=== PATIENT | male | born 1945 | race Caucasian/White ===

== ENCOUNTER 2018-10-08 12:06 | Observation (INO) ==
--- NOTE | 2018-10-08 15:39 | Emergency Department Note ---
Disposition Clinical Impression: Syncope and collapse, Syncope Disposition: Admitted As Inpatient Condition: Fair Referrals: Kelvin Mcmullen DO [Primary Care Provider] - Forms: ED Satisfaction Letter Time of Disposition: 17:50 General Adult HPI - General Chief complaint: ED Seizure Stated complaint: Possible seizure Time Seen by Provider: 10/08/18 14:17 Source: patient, family Limitations: no limitations - History of Present Illness HPI Narrative: Mr. Nicole is a 73-year-old male with past medical history of PA in 2008, hyperlipidemia, dementia who presented to the ED after a recent episode of witn essed jerking of whole-body. His is at bedside, reports this afternoon they were waiting at his chiropractor's office reading a magazine when all of the sudden his hands and whole body started shaking for about 1 minute. He dropped the magazine and prior to this even happening he felt "funny." He was not responsive to verbal stimuli during the event. After the event he was confused and reported he felt "funny." He has never had an event like this before. No recent changes in diet or physical activity. Prior to this event she had a normal breakfast this morning did not have any symptoms. During this event she did not have loss of bowel or bladder control denied biting his tongue or facial droopiness. Denies any current chest pain or chest pain at the onset of the symptoms. Denies fever, chills, nausea, emesis, bowel changes, bowel changes, abdominal pain, back pain. Pain Scale: 0 - Related Data Previous Rx's Medication Instructions Recorded HYDROcodone/Acet 5/325 mg [[place] 1 tab PO Q4H PRN #15 tab 07/26/16 5-325 mg] Allergies Allergy/AdvReac Type Severity Reaction Status Date / Time fenofibrate [From Tricor] AdvReac Muscle Pain Verified 10/08/18 12:35 Oghpvnn-Pmg-Cwa Reductase AdvReac Muscle Pain Verified 10/08/18 12:35 Inhibitor Constitutional: Denies: fever, chills, weakness Eyes: Denies: eye pain, eye discharge ENT ED: Denies: ear pain, throat pain, epistaxis, congestion, dysphagia Cardiovascular: Denies: chest pain, palpitations, dyspnea on exertion, orthopnea Respiratory: Denies: cough, dyspnea, wheezes Gastrointestinal: Denies: abdominal pain, nausea, vomiting, diarrhea Genitourinary: Denies: dysuria, frequency, hematuria Integumentary: Denies: rash, lesions Neurological: Denies: headache, weakness, numbness, confusion Past Medical History - Past Medical History Medical history: Reports: coronary artery disease, dementia, diabetes, myocar dial infarction Surgical history: Reports: angioplasty/stent, herniorrhaphy, orthopedic, other Psychiatric history: Reports: no psych history - Social History Smoking Status: Former smoker Smokeless Tobacco Status: No Alcohol use: Reports: none Drug use: Reports: none Physical Exam - General Limitations: no limitations General appearance: alert, in no apparent distress - Head Head exam: atraumatic, normocephalic - Eye Eye exam: Present: normal appearance, EOMI. Absent: scleral icterus, conjunctival injection - ENT ENT exam: normal exam, mucous membranes moist, mucous membranes dry - Neck Neck exam: Present: normal inspection, full ROM, trachea midline - Chest Chest inspection: Present: normal inspection, symmetric chest wall rise. Absent: tenderness - Respiratory Respiratory exam: Present: normal lung sounds bilaterally. Absent: respiratory distress, wheezes - Cardiovascular Cardiovascular exam: Present: regular rate, normal rhythm, +S1, +S2 - Abdominal Exam Abdominal exam: Present: soft, Non-Tender, normal bowel sounds. Absent: rigidity - Extremities Exam Extremities exam: Present: normal inspection, full ROM. Absent: tenderness, pedal edema - Neurological Exam Neurological exam: Present: alert, oriented X3, CN II-XII intact - Psychiatric Psychiatric exam: Present: normal affect, normal mood Course - Reevaluation(s) Reevaluation #1: CT had is within normal limits. EKG shows sinus bradycardia. He will be admitted to the hospital for further workup due to episode of syncope. Time: 16:48 Reevaluation #2: Updated admitting physician and patient will be admitted to inpatient for syncopal episode and further workup. Time: 17:47 Vital Signs Temperature 97.5 F L 10/08/18 12:29 Pulse Rate 60 10/08/18 12:29 Respiratory Rate 16 10/08/18 12:29 Blood Pressure 138/75 10/08/18 12:29 O2 Sat by Pulse Oximetry 97 10/08/18 12:29 Temperature 97.5 F L 10/08/18 12:29 Pulse Rate 55 10/08/18 16:26 Respiratory Rate 12 10/08/18 16:26 Blood Pressure 133/62 10/08/18 16:26 O2 Sat by Pulse Oximetry 100 10/08/18 16:26 Oxygen Delivery Oxygen Delivery Room Air Medical Decision Making - Lab Data Result diagrams: 10/08/18 15:37 10/08/18 15:37 Lab Results 10/08/18 10/08/18 10/08/18 Range/Units 15:37 15:37 15:37 WBC 7.6 (4.3-11.1) K/mcL RBC 4.16 L (4.19-5.50) M/mcL Hgb 13.0 (12.9-16.9) g/dL Hct 38.2 (37.5-50.1) % MCV 91.8 (83.0-100.0) fL MCH 31.3 (28.0-33.3) pg MCHC 34.0 (31.6-35.5) g/dL RDW 12.6 (11.5-14.5) % Plt Count 218 (140-400) K/mcL MPV 10.1 (9.4-12.4) fL Immature Gran % 0.3 (0-4) % Seg Neutrophils % 63.4 % Lymphocytes % 24.8 % Monocytes % 9.1 % Eosinophils % 1.7 % Basophils % 0.7 % Neutrophils # 4.8 (1.6-8.9) K/mcL Lymphocytes # 1.9 (0.6-4.6) K/mcL Monocytes # 0.7 (0.0-1.3) K/mcL Eosinophils # 0.1 (0.0-0.6) K/mcL Basophils # 0.1 (0.0-0.2) K/mcL D-Dimer (0-500) ng/mLFEU Sodium 135 L (136-145) mEq/L Potassium 4.4 (3.5-5.1) mEq/L Chloride 103 (98-107) mEq/L Carbon Dioxide 25 (23-29) mEq/L BUN 13 (8-23) mg/dL Creatinine 0.93 (0.70-1.30) mg/dL Est GFR ( Amer) > 60 (> 60) Est GFR (Non-Af Amer) > 60 (> 60) BUN/Creatinine Ratio 14 (6-26) Glucose 107 H (70-105) mg/dL Calculated Osmolality 281 (280-300) Lactic Acid 0.8 (0.5-2.2) mmol/L Calcium 9.3 (8.6-10.3) mg/dL Troponin I < 0.03 (< 0.04) ng/mL Urine Color (Yellow) Urine Clarity (Clear) Urine pH (5.0-8.0) pH Units Ur Specific [place] (1.010-1.025) Urine Protein (Neg-Trace) mg/dL Urine Glucose (UA) (Normal) mg/dL Urine Ketones (Negative) mg/dL Urine Blood (Negative) Urine Nitrite (Negative) Urine Bilirubin (Negative) Urine Urobilinogen (Normal) mg/dL Ur Leukocyte Esterase (Negative) Ur Culture Indicated? (NO) Urine Opiates Screen (Fpclco=900) ng/mL Ur Barbiturates Screen (Elfhzi=056) ng/mL Ur Phencyclidine Scrn (Cutoff=25) ng/mL Ur Amphetamines Screen ([place]=6214) ng/mL U Benzodiazepines Scrn (Dedthp=118) ng/mL Urine Cocaine Screen (Cutoff= 300) ng/mL U Marijuana (THC) Screen (Cutoff = 50) ng/mL Ur Drug Screen Interp 10/08/18 10/08/18 10/08/18 Range/Units 15:37 17:04 17:09 WBC (4.3-11.1) K/mcL RBC (4.19-5.50) M/mcL Hgb (12.9-16.9) g/dL Hct (37.5-50.1) % MCV (83.0-100.0) fL MCH (28.0-33.3) pg MCHC (31.6-35.5) g/dL RDW (11.5-14.5) % Plt Count (140-400) K/mcL MPV (9.4-12.4) fL Immature Gran % (0-4) % Seg Neutrophils % % Lymphocytes % % Monocytes % % Eosinophils % % Basophils % % Neutrophils # (1.6-8.9) K/mcL Lymphocytes # (0.6-4.6) K/mcL Monocytes # (0.0-1.3) K/mcL Eosinophils # (0.0-0.6) K/mcL Basophils # (0.0-0.2) K/mcL D-Dimer 466 (0-500) ng/mLFEU Sodium (136-145) mEq/L Potassium (3.5-5.1) mEq/L Chloride (98-107) mEq/L Carbon Dioxide (23-29) mEq/L BUN (8-23) mg/dL Creatinine (0.70-1.30) mg/dL Est GFR ( Amer) (> 60) Est GFR (Non-Af Amer) (> 60) BUN/Creatinine Ratio (6-26) Glucose (70-105) mg/dL Calculated Osmolality (280-300) Lactic Acid (0.5-2.2) mmol/L Calcium (8.6-10.3) mg/dL Troponin I (< 0.04) ng/mL Urine Color Yellow (Yellow) Urine Clarity Clear (Clear) Urine pH 7.0 (5.0-8.0) pH Units Ur Specific [place] < 1.005 L (1.010-1.025) Urine Protein Negative (Neg-Trace) mg/dL Urine Glucose (UA) Normal (Normal) mg/dL Urine Ketones Negative (Negative) mg/dL Urine Blood Negative (Negative) Urine Nitrite Negative (Negative) Urine Bilirubin Negative (Negative) Urine Urobilinogen Normal (Normal) mg/dL Ur Leukocyte Esterase Negative (Negative) Ur Culture Indicated? NO (NO) Urine Opiates Screen Negative (Nobvgt=651) ng/mL Ur Barbiturates Screen Negative (Tccewk=760) ng/mL Ur Phencyclidine Scrn Negative (Cutoff=25) ng/mL Ur Amphetamines Screen Negative (Ipcrjf=7731) ng/mL U Benzodiazepines Scrn Negative (Mpyogp=366) ng/mL Urine Cocaine Screen Negative (Cutoff= 300) ng/mL U Marijuana (THC) Screen Negative (Cutoff = 50) ng/mL Ur Drug Screen Interp See Below
[2018-10-08 15:54] LABS: Basophils # 0.1 K/mcL (0.0-0.2); Basophils % 0.7 %; Eosinophils # 0.1 K/mcL (0.0-0.6); Eosinophils % 1.7 %; Hematocrit 38.2 % (37.5-50.1); Immature Granulocytes % 0.3 % (0-4); Lymphocytes # 1.9 K/mcL (0.6-4.6); Lymphocytes % 24.8 %; Mean Corpuscular Hemoglobin 31.3 pg (28.0-33.3); Mean Corpuscular Volume 91.8 fL (83.0-100.0); Mean Platelet Volume 10.1 fL (9.4-12.4); Monocytes # 0.7 K/mcL (0.0-1.3); Monocytes % 9.1 %; Neutrophils # 4.8 K/mcL (1.6-8.9); Platelet Count 218 K/mcL (140-400); Red Blood Count 4.16 M/mcL (4.19-5.50); Red Cell Distribution Width 12.6 % (11.5-14.5); Segmented Neutrophils % 63.4 %; White Blood Count 7.6 K/mcL (4.3-11.1)
[2018-10-08 16:31] LABS: BUN/Creatinine Ratio 14 (6-26); Blood Urea Nitrogen 13 mg/dL (8-23); Calcium 9.3 mg/dL (8.6-10.3); Carbon Dioxide 25 mEq/L (23-29); Chloride 103 mEq/L (98-107); Glucose 107 mg/dL (70-105); Osmolality,Calculated 281 (280-300); Potassium 4.4 mEq/L (3.5-5.1); Sodium 135 mEq/L (136-145); Troponin I < 0.03 ng/mL (< 0.04); eGFR For African Americans > 60 (> 60); eGFR For Non-African Americans > 60 (> 60)
--- NOTE | 2018-10-08 16:45 | Emergency Department Note ---
Disposition Clinical Impression: Syncope and collapse Disposition: Admitted As Inpatient Condition: Fair Referrals: Kelvin Mcmullen DO [Primary Care Provider] - Forms: ED Satisfaction Letter Time of Disposition: 16:48 General Adult HPI - General Chief complaint: ED Seizure Stated complaint: Possible seizure Time Seen by Provider: 10/08/18 14:17 Source: patient, family Limitations: no limitations - History of Present Illness Pain Scale: 0 - Related Data Previous Rx's Medication Instructions Recorded HYDROcodone/Acet 5/325 mg [[place] 1 tab PO Q4H PRN #15 tab 07/26/16 5-325 mg] Allergies Allergy/AdvReac Type Severity Reaction Status Date / Time fenofibrate [From Tricor] AdvReac Muscle Pain Verified 10/08/18 12:35 Hvlsofb-Pri-Meq Reductase AdvReac Muscle Pain Verified 10/08/18 12:35 Inhibitor Constitutional: Denies: fever, chills, weakness Eyes: Denies: eye pain, eye discharge ENT ED: Denies: ear pain, throat pain, epistaxis, congestion, dysphagia Cardiovascular: Denies: chest pain, palpitations, dyspnea on exertion, orthopnea Respiratory: Denies: cough, dyspnea, wheezes Gastrointestinal: Denies: abdominal pain, nausea, vomiting, diarrhea Genitourinary: Denies: dysuria, frequency, hematuria Integumentary: Denies: rash, lesions Neurological: Denies: headache, weakness, numbness, confusion Past Medical History - Past Medical History Medical history: Reports: coronary artery disease, dementia, diabetes, myocardial infarction Surgical history: Reports: angioplasty/stent, herniorrhaphy, orthopedic, other Psychiatric history: Reports: no psych history - Social History Smoking Status: Former smoker Smokeless Tobacco Status: No Alcohol use: Reports: none Drug use: Reports: none Physical Exam - General Limitations: no limitations General appearance: alert, in no apparent distress Course Vital Signs Temperature 97.5 F L 10/08/18 12:29 Pulse Rate 60 10/08/18 12:29 Respiratory Rate 16 10/08/18 12:29 Blood Pressure 138/75 10/08/18 12:29 O2 Sat by Pulse Oximetry 97 10/08/18 12:29 Temperature 97.5 F L 10/08/18 12:29 Pulse Rate 55 10/08/18 16:26 Respiratory Rate 12 10/08/18 16:26 Blood Pressure 133/62 10/08/18 16:26 O2 Sat by Pulse Oximetry 100 10/08/18 16:26 Oxygen Delivery Oxygen Delivery Room Air Medical Decision Making - Lab Data Result diagrams: 10/08/18 15:37 10/08/18 15:37 Lab Results 10/08/18 10/08/18 10/08/18 Range/Units 15:37 15:37 15:37 WBC 7.6 (4.3-11.1) K/mcL RBC 4.16 L (4.19-5.50) M/mcL Hgb 13.0 (12.9-16.9) g/dL Hct 38.2 (37.5-50.1) % MCV 91.8 (83.0-100.0) fL MCH 31.3 (28.0-33.3) pg MCHC 34.0 (31.6-35.5) g/dL RDW 12.6 (11.5-14.5) % Plt Count 218 (140-400) K/mcL MPV 10.1 (9.4-12.4) fL Immature Gran % 0.3 (0-4) % Seg Neutrophils % 63.4 % Lymphocytes % 24.8 % Monocytes % 9.1 % Eosinophils % 1.7 % Basophils % 0.7 % Neutrophils # 4.8 (1.6-8.9) K/mcL Lymphocytes # 1.9 (0.6-4.6) K/mcL Monocytes # 0.7 (0.0-1.3) K/mcL Eosinophils # 0.1 (0.0-0.6) K/mcL Basophils # 0.1 (0.0-0.2) K/mcL D-Dimer (0-500) ng/mLFEU Sodium 135 L (136-145) mEq/L Potassium 4.4 (3.5-5.1) mEq/L Chloride 103 (98-107) mEq/L Carbon Dioxide 25 (23-29) mEq/L BUN 13 (8-23) mg/dL Creatinine 0.93 (0.70-1.30) mg/dL Est GFR ( Amer) > 60 (> 60) Est GFR (Non-Af Amer) > 60 (> 60) BUN/Creatinine Ratio 14 (6-26) Glucose 107 H (70-105) mg/dL Calculated Osmolality 281 (280-300) Lactic Acid 0.8 (0.5-2.2) mmol/L Calcium 9.3 (8.6-10.3) mg/dL Troponin I < 0.03 (< 0.04) ng/mL 10/08/18 Range/Units 15:37 WBC (4.3-11.1) K/mcL RBC (4.19-5.50) M/mcL Hgb (12.9-16.9) g/dL Hct (37.5-50.1) % MCV (83.0-100.0) fL MCH (28.0-33.3) pg MCHC (31.6-35.5) g/dL RDW (11.5-14.5) % Plt Count (140-400) K/mcL MPV (9.4-12.4) fL Immature Gran % (0-4) % Seg Neutrophils % % Lymphocytes % % Monocytes % % Eosinophils % % Basophils % % Neutrophils # (1.6-8.9) K/mcL Lymphocytes # (0.6-4.6) K/mcL Monocytes # (0.0-1.3) K/mcL Eosinophils # (0.0-0.6) K/mcL Basophils # (0.0-0.2) K/mcL D-Dimer 466 (0-500) ng/mLFEU Sodium (136-145) mEq/L Potassium (3.5-5.1) mEq/L Chloride (98-107) mEq/L Carbon Dioxide (23-29) mEq/L BUN (8-23) mg/dL Creatinine (0.70-1.30) mg/dL Est GFR ( Amer) (> 60) Est GFR (Non-Af Amer) (> 60) BUN/Creatinine Ratio (6-26) Glucose (70-105) mg/dL Calculated Osmolality (280-300) Lactic Acid (0.5-2.2) mmol/L Calcium (8.6-10.3) mg/dL Troponin I (< 0.04) ng/mL Attestation Statement - Attestation Attestation: I have seen this patient with the resident physician, I have personally evaluated this patient. I had reviewed the chart and document dictation by the resident physician and aM in agreement with the information documented by the resident physician. Please see documentation by the resident physician for complete chart including past medical history, family medical history, review of systems, current history and physical and laboratory and imaging studies. I was present for all procedures, provided direct supervision for all procedures, was present for the entirety of all procedures and provided direct guidance during the procedures. Please see documentation by the resident physician for any procedures performed. I have reviewed all interpretations of EKGs, and reviewed all EKGs performed on patient's as well. I have also reviewed reports of imaging as provided by radiology. Patient presents emergency Department with chief complaint of syncope versus seizure, after discussing what happened with the , I am convinced that this is most likely a syncopal event he was sitting next to his in a chair waiting at the chiropractor's office when he had sudden onset of loss of consciousness the reports that he was just sitting there she saw his book fall on his hand she looked over he had generalize shaking-like activity that lasted less than a minute he did not bite his tongue he did not lose continence of urine, slumped to the side and then woke up after about a minute, returned almost immediately to his mental baseline while he was unclear as to what happened there was no postictal type phase he did not lose continence of urine and did not bite his tongue he states that his head feels a little faulty but has no headache. He states that before this happened he maybe was feeling a little queasy but states that he had no chest pain no shortness of breath no palpitations no abdominal pain no pain into his back no tearing or ripping sensation no unilateral numbness or weakness. He states he was just here a few days ago for evaluation of chest pain states that every thing checked out okay he said a little bit of chest pain since that time but not any significant exer tional symptoms. He denies vision changes he denies speech difficulty he denies history of syncope or of seizures. On exam he is alert and oriented 3 cranial nerves are intact no pass point no pronator drift normal strength sensation and reflexes. Speech is clear. Posterior normal extraocular movements are intact. No obvious carotid bruits or JVD. Cardiovascular bradycardic, rate of 56 on the monitor, 12 6 systolic murmur no rubs or gallops lungs are clear the abdomen is soft and nontender. Patient was laid back, and palpation of his abdomen reveals no tenderness there is no palpable or pulsatile mass in the left upper abdomen no ecchymosis on the abdomen. No flank ecchymosis. Normal pulses in all 4 extremities. EKG as interpreted by myself as a sinus rhythm sinus bradycardia, no evidence of acute ST elevation or ST depression as interpreted by myself no evidence of Wellens syndrome or [place] pattern. Chest x-ray as interpreted by radiology showed no evidence of acute abnormality. Head CT is interpreted by radiology showed no acute findings. CBC is within acceptable limits. Cardiac enzymes CBC basic metabolic profile all within acceptable limits. Secondary to the patient having had experienced chest pain the other day, now with a syncopal event a d-dimer was ordered to rule out evidence of pulmonary embolism this is also negative Patient without evidence of widened mediastinum but chest x-ray no chest pain no pain he was back no abdominal pain no abdominal tenderness no palpable or pulsatile Mass. nothing to suggest acute aortic pathology. Secondary to syncope at a seated position in a 73-year-old male with risk factors for cardiac disease and cardiac dysrhythmia he will be admitted to the hospital for further evaluation and management
[2018-10-08 17:19] LABS: Bilirubin,Urine Negative (Negative); Blood,Urine Negative (Negative); Clarity,Urine Clear (Clear); Color,Urine Yellow (Yellow); Glucose,Urine (UA) Normal (Normal); Ketones,Urine Negative (Negative); Leukocyte Esterase,Urine Negative (Negative); Nitrite,Urine Negative (Negative); Protein,Urine Negative (Neg-Trace); Specific Gravity,Urine < 1.005 (1.010-1.025); Urobilinogen,Urine Normal (Normal)
[2018-10-08 17:40] LABS: Amphetamine Screen,Urine Negative ng/mL (Cutoff=1000); Barbiturate Screen,Urine Negative ng/mL (Cutoff=200); Benzodiazepines Screen,Urine Negative ng/mL (Cutoff=200); Cannabinoid Screen,Urine Negative ng/mL (Cutoff = 50); Cocaine Screen,Urine Negative ng/mL (Cutoff= 300); Opiate Screen,Urine Negative ng/mL (Cutoff=300); Phencyclidine Screen,Urine Negative ng/mL (Cutoff=25)
--- NOTE | 2018-10-08 18:20 | Internal Med History&Physical ---
Date of Encounter: 10/08/18 Time of Encounter: 18:00 Internal Medicine - H&P: HPI Chief complaint: LOC, seizure-like activity Admitted From: Home History of present illness: Mr. Nicole is a 73 year old male with history of CAD status post PCI, CVA, early dementia, diabetes on diet control, presented to the ED after an episode of loss of consciousness associated with seizure-like activities. Pt's states they were at a chiropractor's office around 1130am when he suddenly dropped his book, unresponsive, and had jerky movements of all 4 limbs for about 15 seconds. No tongue biting or loss of bowel/bladder function. Spontaneously resolved and when asked by his whether he was ok or not, he was able to answer her question appropriately. They then went for a walk and although he was a bit wobbly on his feet, did not have any significant gait disturbance. No focal weakness/numbness, slurring of speech, facial droop, diplopia, or dysphagia. No fever/chills, chest pain, shortness of breath, palpitation, orthopnea, PND, leg swelling. No recent sick contact. In the ED, he was afebrile and hemodynamically stable. Labwork was essentially unremarkable with negative troponin and d-dimer. EKG shows normal sinus rhythm with ventricular rate of 55. Urinalysis was negative and urine drug screen was also negative. CXR did not show any acute cardiopulmonary process and head CT did not show any acute incranial abnormality. Patient was admitted for further management. Past Med Surg Social Fam HX - Past Medical History Medical history: coronary artery disease, dementia, diabetes, myocardial infarction Additional medical history: see pcp records Psychiatric history: no psych history - Past Surgical History Surgical History: angioplasty/stent, herniorrhaphy, orthopedic, other Additional surgical history: back surgery, LEFT KNEE SURGERY . Cardiac stent 2007 - Social History Smoking Status: Former smoker Smokeless Tobacco Status: No Alcohol use: none Drug use: none Internal Medicine - H&P: Meds HYDROcodone/Acet 5/325 mg [[place] 5-325 mg] 1 tab PO Q4H PRN #15 tab 07/26/16 [Rx] Allergy/AdvReac Type Severity Reaction Status Date / Time fenofibrate [From Tricor] AdvReac Muscle Pain Verified 10/08/18 12:35 Mmfrcuo-Ylz-Kbl Reductase AdvReac Muscle Pain Verified 10/08/18 12:35 Inhibitor All Systems PM: A 10-system review of systems was performed and is negative for pertinent findings except as documented above in the HPI. - Constitutional Vitals: Temp Pulse Resp BP Pulse Ox 97.5 F L 55 12 133/62 100 10/08/18 12:29 10/08/18 16:26 10/08/18 16:26 10/08/18 16:26 10/08/18 16:26 Exam: General: Alert and oriented, not in acute distress. HEENT:EOMI, pupils equal, round and reactive. Cardiovascular:Normal S1 & S2, No JVD. Pulse regular. No murmur appreciated Lungs: clear to auscultation, no wheezes/rales Abdomen:Soft, non-tender, no rigidity. Extremities:No deformity or swelling Neurological:CN II-XII intact, power and sensation fully intact in all 4 limbs. No cerebellar signs, pronator drift -ve, Babinski downgoing bilaterally Skin:Normal color, no rash, no lesions. Pulses:Carotid and radial pulses normal +2. Rest of the physical exam is non contributory Internal Med - H&P Results - Labs CBC & Chem 7: 10/08/18 15:37 10/08/18 15:37 Labs: Short CBC 10/08/18 Range/Units 15:37 WBC 7.6 (4.3-11.1) K/mcL Hgb 13.0 (12.9-16.9) g/dL Hct 38.2 (37.5-50.1) % Plt Count 218 (140-400) K/mcL Neutrophils # 4.8 (1.6-8.9) K/mcL BMP 10/08/18 15:37 Sodium 135 L Potassium 4.4 Chloride 103 Carbon Dioxide 25 BUN 13 Creatinine 0.93 Glucose 107 H Calcium 9.3 Cardiac Enzymes 10/08/18 Range/Units 15:37 Troponin I < 0.03 (< 0.04) ng/mL Urine 10/08/18 Range/Units 17:09 Urine Color Yellow (Yellow) Urine Clarity Clear (Clear) Urine pH 7.0 (5.0-8.0) pH Units Ur Specific [place] < 1.005 L (1.010-1.025) Urine Protein Negative (Neg-Trace) mg/dL Urine Glucose (UA) Normal (Normal) mg/dL - Impressions ITS Impressions Chest X-Ray 10/08/18 14:33 IMPRESSION: Stable exam. No new acute cardiopulmonary findings. D/ / Gillian Subramanian MD / Gillian Subramanian MD Interpreting Provider: Gillian Subramanian MD Head CT 10/08/18 14:33 IMPRESSION: No acute intracranial abnormality. D/ / Loyd Ray / Loyd Ray Interpreting Provider: Loyd Ray - Assessment and Plan (1) Syncope and collapse Current Visit: Yes Status: Acute Assessment and plan: presented with sudden LOC associated with jerky movements of all 4 limbs, however it was not followed by post-ictal confusion syncope vs. partial seizure upon review of previous record, pt was worked up for "seizure" in 10/2017 as he had tremors of the UEs bilaterally. endorses that this episode was different however EEG inconclusive at that time, MRI however did demonstrate chronic cortical infarct within the right posterior parietal lobe with adjacent gliosis and encephalomalacia telemetry, trend troponin to rule out ACS echocardiogram EEG neurology consult in the AM (2) CAD (coronary artery disease) Current Visit: Yes Status: Chronic Assessment and plan: Resume home meds once reconciled Qualifiers: Coronary Disease-Associated Artery/Lesion type: [place] artery [place] vs. transplanted heart: [place] heart Associated angina: without angina Qualified Code(s): I25.10 - Atherosclerotic heart disease of [place] coronary artery without angina pectoris (3) Dementia Current Visit: Yes Status: Chronic Assessment and plan: resume aricept when reconciled Qualifiers: Dementia type: unspecified type Dementia behavioral disturbance: without behavioral disturbance Qualified Code(s): F03.90 - Unspecified dementia without behavioral disturbance (4) Diabetes Current Visit: Yes Status: Chronic Assessment and plan: A1c 6.6 in 06/2018 diet control at home Qualifiers: Diabetes mellitus type: type 2 Diabetes mellitus termite inspector insulin use: without detention use Diabetes mellitus complication status: without complication Qualified Code(s): E11.9 - Type 2 diabetes mellitus without complications (5) DVT prophylaxis Current Visit: Yes Status: Acute Assessment and plan: EPCD - Time Spent With Patient Total time spent is greater than 50% in coordination of care (as documented) at patient's floor/unit and/or counseling patient: 25 - 35 minutes
[2018-10-08] MEDS ORDERED: Naloxone 0.4 MG/ML INJ IVP PRN (18:24)
[2018-10-08] MEDS ORDERED: Ondansetron 4 MG/2 ML VIAL IVP PRN (18:24)
[2018-10-08] MEDS ORDERED: *HR* LORazepam 2 MG/ML VIAL IVP PRN (18:30)
[2018-10-09 07:40] LABS: Basophils # 0.1 K/mcL (0.0-0.2); Basophils % 0.8 %; Eosinophils # 0.2 K/mcL (0.0-0.6); Eosinophils % 2.8 %; Hematocrit 38.2 % (37.5-50.1); Hemoglobin 12.7 g/dL (12.9-16.9); Immature Granulocytes % 0.4 % (0-4); Lymphocytes # 1.8 K/mcL (0.6-4.6); Lymphocytes % 25.7 %; Mean Corpuscular HGB Conc 33.2 g/dL (31.6-35.5); Mean Corpuscular Hemoglobin 30.5 pg (28.0-33.3); Mean Corpuscular Volume 91.8 fL (83.0-100.0); Mean Platelet Volume 10.5 fL (9.4-12.4); Monocytes # 0.7 K/mcL (0.0-1.3); Monocytes % 10.2 %; Neutrophils # 4.2 K/mcL (1.6-8.9); Platelet Count 216 K/mcL (140-400); Red Blood Count 4.16 M/mcL (4.19-5.50); Red Cell Distribution Width 12.6 % (11.5-14.5); Segmented Neutrophils % 60.1 %; White Blood Count 7.1 K/mcL (4.3-11.1)
[2018-10-09 07:51] LABS: BUN/Creatinine Ratio 12 (6-26); Blood Urea Nitrogen 12 mg/dL (8-23); Calcium 8.8 mg/dL (8.6-10.3); Carbon Dioxide 26 mEq/L (23-29); Chloride 105 mEq/L (98-107); Glucose 131 mg/dL (70-105); Magnesium 2.1 mg/dL (1.6-2.6); Osmolality,Calculated 290 (280-300); Potassium 4.1 mEq/L (3.5-5.1); Sodium 139 mEq/L (136-145); eGFR For African Americans > 60 (> 60); eGFR For Non-African Americans > 60 (> 60)
--- NOTE | 2018-10-09 09:44 | Electrocardiograph Report ---
[place] [id number] Test Date: 2018-10-08 Pat Name: Simon Nicole Department: EXAM30 Room: 3B35 Gender: M [employer]: JOCE: 1945 Requested By: Jimmie Lewis Order Number: [id number] Reading MD: Tim Peng Measurements Intervals [place] Rate: 53 P: 30 MT: 179 QRS: -18 QRSD: 95 T: 50 QT: 438 QTc: 412 Interpretive Statements Sinus rhythm Borderline left axis deviation Probable anteroseptal infarct, old Electronically Signed On 10-09-2018 9:42:53 EDT by Tim Peng
--- NOTE | 2018-10-09 10:27 | Neurology - Consult Note ---
<Corey Deutsch W - Last Filed: 10/09/18 10:20> Date of Encounter: 10/09/18 Time of Encounter: 10:20 Assessment and Plan (1) Syncope and collapse Current Visit: Yes Status: Acute Presented with under 1 minute of LOC with whole body jerking. Unknown etiology at this time possibly caused by seizure but lower suspicion at this time. No postictal state, EEG is ordered and pending Patient had seizure workup in the last year EEg found no seizure like activity and MRI found chronic cortical infarct within the right posterior parietal lobe with adjacent gliosis and encephalomalacia. Patient exhibiting mild cerebellar signs, pt says patient is at baseline. I would still recommend MRI plan: EEG pending MRI (2) Myoclonic jerking Current Visit: Yes Status: Acute chronic plan as above History of Present Illness HPI: Mr. Nicole is a 73 year old male with history of CAD, CVA, early dementia, diabetes presented to the ED after an episode of seizure-like activity. Patient's states that there are other chiropractors in the waiting room where he dropped a magazine and began whole body shaking for less than a minute. He was not responsive during the shaking. Patient's stated he came to immediately after the shaking stopped. Did not show any signs of confusion medially after the event. Patient did not bite his tongue did not have any urinary or bowel incontinence. Shaking was of all 4 limbs upper extremity worse than lower extremity. Did not fall out of his chair. Patient states afterwards he felt slightly dizzy but was able to walk. During or after the event patient's denied any facial droop, speech deficits, diplopia, dysphagia, focal weakness, numbness, tingling. Patient and patient's deny any new symptoms since hospitalization. Patient is at his baseline term memory as he has a mild cognitive impairment due to early dementia. Patient denies any chest pain, shortness of breath, dizziness, lightheadedness. Patient has previously seen Dr. Frost for dementia and started on aricept. Patient also has history of left sided myoclonic jerks no treatment has been started. Patient had previous MRI and EEG last year with no acute changes. Past Med Surg Social Fam HX - Past Medical History Medical history: coronary artery disease, dementia, myocardial infarction Additional medical history: see pcp records Psychiatric history: no psych history - Past Surgical History Surgical History: angioplasty/stent, herniorrhaphy, orthopedic, other Additional surgical history: back surgery, LEFT KNEE SURGERY . Cardiac stent 2007 - Social History Smoking Status: Former smoker Smokeless Tobacco Status: No Alcohol use: rarely Drug use: none - Family History Father Hx Family Cardiac Disorders: Yes (CHF) Hx Family Endocrine Disorder: Yes (DM) Mother Hx Family Neurologic Disorders: Yes (Alzhemiers) Medications and Allergies Aspirin Enteric Coated [Aspirin EC] 81 mg PO DAILY #30 tablet. 10/09/18 [Rx] Clopidogrel [Plavix] 75 mg PO QAM 10/09/18 [History] Donepezil [Aricept] 10 mg PO QAM 10/09/18 [History] Ranitidine HCl [Acid Outpatient Scheduler] 150 mg PO DAILY PRN 10/09/18 [History] Rosuvastatin Calcium 10 mg PO QAM 10/09/18 [History] Allergy/AdvReac Type Severity Reaction Status Date / Time fenofibrate [From Tricor] AdvReac Muscle Pain Verified 10/08/18 12:35 Mocvfbk-Qdd-Mmx Reductase AdvReac Muscle Pain Verified 10/08/18 12:35 Inhibitor All Systems: The remainder of the systems were reviewed and are negative Review of Systems: As per history of present illness Physical Examination - Vital Signs Vital Signs: Initial Vital Signs Temp Pulse Resp BP Pulse Ox 97.5 F L 60 16 138/75 97 10/08/18 12:29 10/08/18 12:29 10/08/18 12:29 10/08/18 12:29 10/08/18 12:29 - Exam Exam: Patient was lying comfortably in bed. Was alert and responsive and answering questions appropriately. When asked about specific dates or timing of things patient did have some difficulty coming up with the answer. It was confusing some names in his story. However patient's that this is his baseline as he is diagnosed with early dementia. Patient did have decreased strength in his left arm compared to his right. Patient did so some mild dysmetria and had some mild difficulty with sywugj-jt-uvys testing and heel-to-octavio, and some dysdiadochokinesia . Patient and his believe this is more of a chronic issue. Patient states he does not use his left arm very often. Results - Laboratory Findings CBC and BMP: 10/09/18 06:43 10/09/18 06:43 Abnormal lab findings: Abnormal lab results RBC 4.16 M/mcL (4.19-5.50) L 10/09/18 06:43 Hgb 12.7 g/dL (12.9-16.9) L 10/09/18 06:43 Sodium 135 mEq/L (136-145) L 10/08/18 15:37 Glucose 131 mg/dL (70-105) H 10/09/18 06:43 POC Glucose 125 mg/dL (70-99) H 10/08/18 23:05 0.04 ng/mL (< 0.04) H* 10/08/18 21:34 Ur Specific [place] < 1.005 (1.010-1.025) L 10/08/18 17:09 Consult Discharge Plan - Plan Referrals: Edil Garcia DO [Partnered Physician] - Kelvin Mcmullen DO [Primary Care Provider] - Prescriptions: Aspirin Enteric Coated [Aspirin EC] 81 mg PO DAILY #30 tablet.dr <Edil Garcia - Last Filed: 10/09/18 19:06> Date of Encounter: 10/09/18 Assessment and Plan (1) Syncope and collapse Current Visit: Yes Status: Acute I have personally performed a krdp-al-[id number] assessment of the patient and have reviewed the PA/[employer] DISTRIBUTOR note. My impressions are as follows: Patient has now experienced it seems, 2 episodes of altered consciousness. He has been recently diagnosed with senile dementia of the Alzheimer's type. I did review his MRI scan of the brain which was completed in October 2017, along with the CT scan admitted during the this admission. He has a significant amount of cortical atrophy present along with a right parietal occipital infarct. He is also experiencing intermittent myoclonic jerking. I am concerned that he may be at risk for further episodes of seizure considering the cortical atrophy and the infarct in the right parietal cortex which may be resulting in cortical neuronal instability. I would therefore recommend loading him on Keppra 1000 mg. The martín chery is anxious for discharge. I do not feel it is absolutely urgent that his MRI be completed during this admission. It can be canceled and completed as an outpatient. However I would recommend loading him on Keppra and having and follow-up with Dr. Frost after discharge. Patients with Alzheimer's May however experience intermittent myoclonic jerks. I will reevaluate him at your request. History of Present Illness HPI: Chart was reviewed, the patient was seen and examined independently. Case was discussed with Dr. Deutsch. I agree with his documentation of history of present illness as stated above. I did review the EEG, which was normal. However sinus bradycardia was present as well. All Systems: The remainder of the systems were reviewed and are negative Review of Systems: The balance of the systems review is negative. Physical Examination - Vital Signs Vital Signs: Initial Vital Signs Temp Pulse Resp BP Pulse Ox 97.5 F L 60 16 138/75 97 10/08/18 12:29 10/08/18 12:29 10/08/18 12:29 10/08/18 12:29 10/08/18 12:29 - Exam Exam: General Examination: *CONSTITUTIONAL: normal *GENERAL APPEARANCE OF PATIENT appears healthy and well groomed *EYES: pupils equal, round, reactive to light and accommodation, conjunctiva clear without masses or ulcerations, fundi normal. *CARDIOVASCULAR no peripheral edema, distal temperature normal, dorsalis pedis pulses normal. Refer to vital signs Musculoskeletal: *GAIT AND STATION normal, with normal Romberg testing, no abnormalities such as broad base gait or spasticity *ASSESSMENT OF MUSCLE STRENGTH IN THE UPPER AND LOWER EXTREMITIES deltoid, bicep, tricep, wallpaper consultant strength, hip flexors ,anterior tibialis, dorsoflexion of th e foot normal. *MUSCLE TONE IN THE UPPER AND LOWER EXTREMITIES normal. Occasional myoclonic jerking is present, no fasciculations or atrophy identified. Neurological: *ORIENTATION to person and place, however he does have some difficulty with spontaneity and has to think for moment. *RECURRENT AND REMOTE MEMORY impaired. *ATTENTION AND CONCENTRATION are normal *LANGUAGE FUNCTION no significant aphasia or dysarthia was noted. *FUND OF KNOWLEDGE patient does have early dementia and does have some impairment in his ability to recall events surrounding his admission. His however gives most of the pertinent history of present illness. *MENTAL attention span and concentration normal. *CN II optic fundi were normal, no papilledema noted. *CN III,IV, PERRLA extraocular eye movements were full, no nystagmus and no ptosis noted. *CN V shows normal sensation and jaw opens symmetrically. *CN VII shows normal facial movement symmetrically, upper and lower bilaterally. *CN VIII shows no significant hearing loss on examination in the office. *CN IX,,X palate elevated symmetrically and normal gag reflex was noted. *CN XI normal strength in the sternocleidomastoid muscles, symmetrical shoulder shrugging. *CN XII tongue protruded in the midline, with normal strength and movement. *SENSORY EXAMINATION pinprick sensation intact, and light touch(vibration sense). *REFLEXES: deep tendon reflexes were normal and symmetrical , grade 2/4 diffusely, no pathological reflexes were noted. *CEREBELLAR TESTING normal finger to nose, heel/knee/hook, and tandem walk. *PAIN LEVEL 0 Results - Laboratory Findings CBC and BMP: 10/09/18 06:43 10/09/18 06:43 Abnormal lab findings: Abnormal lab results RBC 4.16 M/mcL (4.19-5.50) L 10/09/18 06:43 Hgb 12.7 g/dL (12.9-16.9) L 10/09/18 06:43 Sodium 135 mEq/L (136-145) L 10/08/18 15:37 Glucose 131 mg/dL (70-105) H 10/09/18 06:43 POC Glucose 111 mg/dL (70-99) H 10/09/18 15:15 0.04 ng/mL (< 0.04) H* 10/08/18 21:34 Ur Specific [place] < 1.005 (1.010-1.025) L 10/08/18 17:09
[2018-10-09 15:16] VITALS: BP 122/64
--- NOTE | 2018-10-09 16:16 | Discharge Summary ---
- NOTES TO OUTPATIENT PROVIDER Notes to Outpatient Provider: f/u with PCP in one week. Orders not resulted at time of discharge: Pending orders 10/09/18 10:46 MR head/brain wo con [MR] Routine Date of Encounter: 10/09/18 Time of Encounter: 16:11 - Discharge Diagnosis (1) Syncope and collapse Priority: Primary Status: Acute (2) CAD (coronary artery disease) Priority: Secondary Status: Chronic Qualifiers: Coronary Disease-Associated Artery/Lesion type: [place] artery [place] vs. transplanted heart: [place] heart Associated angina: without angina Qualified Code(s): I25.10 - Atherosclerotic heart disease of [place] coronary artery without angina pectoris (3) Dementia Priority: Secondary Status: Chronic Qualifiers: Dementia type: unspecified type Dementia behavioral disturbance: without behavioral disturbance Qualified Code(s): F03.90 - Unspecified dementia without behavioral disturbance (4) DVT prophylaxis Priority: Secondary Status: Acute (5) Diabetes Priority: Secondary Status: Chronic Qualifiers: Diabetes mellitus type: type 2 Diabetes mellitus laborer marine terminal insulin use: without correction use Diabetes mellitus complication status: without complication Qualified Code(s): E11.9 - Type 2 diabetes mellitus without complications Hospital course: Mr. Nicole is a 73 year old male with history of CAD status post PCI, CVA, early dementia, diabetes on diet control who is currently not on any medication pt presented to the ED after an episode of loss of consciousness associated with seizure-like activity at home witnessed by . Pt's states they were at a chiropractor's office around 1130am when he suddenly dropped his book, unresponsive, and had jerky movements of all 4 limbs for about 15 seconds. No tongue biting or loss of bowel/bladder function. Spontaneously resolved and when asked by his whether he was ok or not, he was able to answer her question appropriately. They then went for a walk and although he was a bit wobbly on his feet, did not have any significant gait disturbance. In the ER his labwork was essentially unremarkable with negative troponin and d-dimer. EKG shows normal sinus rhythm with ventricular rate of 55. Urinalysis was negative and urine drug screen was also negative. CXR did not show any acute cardiopulmonary process and head CT did not show any acute incranial abnormality. He was admitted in the hospital and placed him on rn cardiac rehab. His 2nd troponin elevated @ 0.04. He denied any chest pain. His 2 D Echo showed LVEF 55%, mild left ventricular diastolic dysfunction. No septal/wall motion abnormalities noticed. He had an EEG done, waiting for final results. He is scheduled to go for MRI. Pt was evaluated by Neurology. If EEG and MRI come back normal will d/c him home in stable condition today. - Time Spent with Patient Total time spent providing and/or coordinating discharge services: - Discharge Medications Prescriptions: New Aspirin Enteric Coated [Aspirin EC] 81 mg PO DAILY #30 tablet. Continued HYDROcodone/Acet 5/325 mg [[place] 5-325 mg] 1 tab PO Q4H PRN #15 tab PRN Reason: Pain Home Medications: HYDROcodone/Acet 5/325 mg [[place] 5-325 mg] 1 tab PO Q4H PRN #15 tab 07/26/16 [Rx] Aspirin Enteric Coated [Aspirin EC] 81 mg PO DAILY #30 tablet. 10/09/18 [Rx] Allergies/Adverse Reactions: Allergy/AdvReac Type Severity Reaction Status Date / Time fenofibrate [From Tricor] AdvReac Muscle Pain Verified 10/08/18 12:35 Blqcsah-Jak-Dxm Reductase AdvReac Muscle Pain Verified 10/08/18 12:35 Inhibitor Date of admission: 10/08/18 19:35 Primary care physician: Kelvin Mcmullen Consults: 10/08/18 22:30 Consult to Neonatal Specialist [CONS] Routine Reason for SW Consult: advanced directives 10/08/18 22:34 Consult to Physical Therapy [CONS] Routine Comment: Evaluate, develop and implement POC Reason for Consult: high fall risk Does patient have active BEDREST order?: No Is patient medically & hemodynamically stable?: Yes Patient assessed for mobility or mobilized this visit?: Yes 10/09/18 09:22 Consult to Neurology [CONS] Routine Consulting Provider: Neurology [facility] Reason for Consult: Seizure Time Notified: 09:23 Call Completed: Yes 10/09/18 12:52 Consult to Interpret Exam [CONS] Routine Consulting Provider: Javan Summers Consult to Interpret Exam: Interpret Sleep Study - Constitutional Vitals: Temp Pulse Resp BP Pulse Ox 98.3 F 61 14 122/64 97 10/09/18 15:15 10/09/18 15:15 10/09/18 15:15 10/09/18 15:15 10/09/18 15:15 General appearance: Present: A&O X 3, no acute distress, answers questions appropriately Exam: Gen: Alert, awake, Oriented to time,place and person Pleasantly demented Chest: Diminished breath sounds B/L, No wheezing, No crackles, No rales Heart: S1S2+ RRR No murmurs Abd: Soft, NT, BS +, No organomegaly Ext: No edema, pulses are palpable, No calf tenderness Neuro : No acute focal neuro deficits noticed Skin: No rash. - Patient Status Disposition: Home, Self-Care Condition: Good Overall status at discharge: patient is back to baseline - Discharge Instructions Follow Up With: Kelvin Mcmullen DO [Primary Care Provider] - Edil Garcia DO [Partnered Physician] - - Diet and Activity Activity: increase activity as tolerated Diet: low salt diet
--- NOTE | 2018-10-09 16:29 | EEG/EMG/Oth Biometrics Report ---
EEG Procedure Report Date of procedure: 10/09/18 Procedure Note: This is a report of a 21 channel bipolar and referential montage EEG. A posterior dominant rhythm of 8 Hz moderate to low voltage alpha frequencies identified symmetrically in the posterior head regions. This rhythm attenuates symmetrically with eye opening. Hyperventilation is not performed during the recording. Periods of drowsiness and stage II sleep identified as reference by dropout of posterior dominant rhythm and emergence of vertex activity K complexes and sleep spindles. Photostimulation is performed and does not produce a driving response. The EKG rhythm strip reveals sinus bradycardia at 54 bpm. Impressions: This EEG recording is within normal limits. There is no evidence of epileptiform activity identified during the study. Comment: Sinus bradycardia at 54 bpm's identified. A normal EEG does not preclude a diagnosis of seizure or epilepsy. If the clinical suspicion for seizure activity is high, serial EEGs or perhaps a prolonged recording may increase the yield. Please correlate clinically.
== END 2018-10-09 21:45 | disposition home or self-care (01) ==
LOC: 3BNU 12:06 → EMEROOARM 12:06 → 3BNU 20:22
PROVIDERS: ADMIT Internal Medicine Nephrology; ATTEND Internal Medicine Nephrology

== ENCOUNTER 2019-09-30 18:15 | Inpatient (IN) ==
[2019-09-30 19:01] LABS: Basophils # 0.1 K/mcL (0.0-0.2); Basophils % 0.8 %; Eosinophils # 0.2 K/mcL (0.0-0.6); Eosinophils % 2.3 %; Hematocrit 35.9 % (37.5-50.1); Hemoglobin 12.2 g/dL (12.9-16.9); Immature Granulocytes % 0.3 % (0-4); Lymphocytes # 2.1 K/mcL (0.6-4.6); Lymphocytes % 29.4 %; Mean Corpuscular Hemoglobin 31.4 pg (28.0-33.3); Mean Corpuscular Volume 92.5 fL (83.0-100.0); Mean Platelet Volume 10.2 fL (9.4-12.4); Monocytes # 0.7 K/mcL (0.0-1.3); Monocytes % 9.1 %; Neutrophils # 4.2 K/mcL (1.6-8.9); Platelet Count 197 K/mcL (140-400); Red Blood Count 3.88 M/mcL (4.19-5.50); Red Cell Distribution Width 12.9 % (11.5-14.5); Segmented Neutrophils % 58.1 %; White Blood Count 7.3 K/mcL (4.3-11.1)
[2019-09-30 19:19] LABS: Troponin I < 0.03 ng/mL (< 0.04)
[2019-09-30 19:23] LABS: BUN/Creatinine Ratio 13 (6-26); Blood Urea Nitrogen 14 mg/dL (8-23); Calcium 8.8 mg/dL (8.6-10.3); Carbon Dioxide 27 mEq/L (23-29); Chloride 105 mEq/L (98-107); Glucose 137 mg/dL (70-105); Osmolality,Calculated 291 (280-300); Potassium 4.1 mEq/L (3.5-5.1); Sodium 139 mEq/L (136-145); eGFR For African Americans > 60 (> 60); eGFR For Non-African Americans > 60 (> 60)
[2019-09-30] MEDS ORDERED: Naloxone 0.4 MG/ML INJ IVP PRN (23:59)
[2019-10-01] MEDS ORDERED: Famotidine 20 MG TABLET PO PRN (00:01)
[2019-10-01] MEDS ORDERED: Dextrose Gel 15 GM/37.5 ML TUBE PO PRN ×2 (03:25)
[2019-10-01] MEDS ORDERED: *HR* Dextrose 50 % in Water (Syg) 50 ML SYRINGE IVP PRN (03:25)
[2019-10-01] MEDS ORDERED: D5% in Water 1,000 ML IVC PRN (03:25)
[2019-10-01] MEDS: *HR* Heparin 5,000 UNIT/ML VIAL SQ SCH ×2 (05:34→17:59)
[2019-10-01] MEDS: Insulin LISPRO 300 UNITS/3 ML VIAL SQ SCH ×3 (07:23→17:01)
[2019-10-01] MEDS: Gabapentin 300 MG CAPSULE PO SCH ×2 (07:26→20:15)
[2019-10-01] MEDS: Aspirin Enteric Coated 81 MG Tablet PO SCH (07:26)
[2019-10-01 07:47] LABS: Hematocrit 36.3 % (37.5-50.1); Hemoglobin 12.4 g/dL (12.9-16.9); Mean Corpuscular HGB Conc 34.2 g/dL (31.6-35.5); Mean Corpuscular Hemoglobin 31.2 pg (28.0-33.3); Mean Corpuscular Volume 91.4 fL (83.0-100.0); Mean Platelet Volume 10.6 fL (9.4-12.4); Platelet Count 206 K/mcL (140-400); Red Blood Count 3.97 M/mcL (4.19-5.50); Red Cell Distribution Width 12.8 % (11.5-14.5); White Blood Count 7.9 K/mcL (4.3-11.1)
[2019-10-01 08:03] LABS: BUN/Creatinine Ratio 12 (6-26); Blood Urea Nitrogen 11 mg/dL (8-23); Calcium 8.6 mg/dL (8.6-10.3); Carbon Dioxide 24 mEq/L (23-29); Chloride 107 mEq/L (98-107); Glucose 115 mg/dL (70-105); Osmolality,Calculated 288 (280-300); Phosphorous 2.7 mg/dL (2.7-4.5); Potassium 3.8 mEq/L (3.5-5.1); Sodium 139 mEq/L (136-145); Troponin I 0.06 ng/mL (< 0.04); eGFR For African Americans > 60 (> 60); eGFR For Non-African Americans > 60 (> 60)
[2019-10-01] MEDS ORDERED: Perflutren Lipid Microsphere 1.3 ML in 0.9 % Sodium Chloride 8.7 ML IVP ONE (11:19)
[2019-10-01] MEDS ORDERED: Insulin LISPRO 300 UNITS/3 ML VIAL SQ SCH (21:00)
[2019-10-02] MEDS ORDERED: 0.9 % Sodium Chloride 1,000 ML ONE (01:06)
[2019-10-02] MEDS ORDERED: Ondansetron 4 MG/2 ML VIAL ONE (01:13)
[2019-10-02] MEDS ORDERED: Pantoprazole 40 MG VIAL IVP ONE (01:13)
[2019-10-02] MEDS ORDERED: *HR* Atropine Sulfate 1 MG/10 ML SYRINGE IV ONE (01:30)
[2019-10-02 01:32] LABS: Basophils # 0.1 K/mcL (0.0-0.2); Basophils % 0.5 %; Eosinophils # 0.3 K/mcL (0.0-0.6); Eosinophils % 1.8 %; Hematocrit 36.8 % (37.5-50.1); Hemoglobin 12.3 g/dL (12.9-16.9); Immature Granulocytes % 0.4 % (0-4); Lymphocytes # 6.1 K/mcL (0.6-4.6); Lymphocytes % 34.4 %; Mean Corpuscular HGB Conc 33.4 g/dL (31.6-35.5); Mean Corpuscular Hemoglobin 30.8 pg (28.0-33.3); Mean Platelet Volume 10.3 fL (9.4-12.4); Monocytes # 1.4 K/mcL (0.0-1.3); Monocytes % 7.8 %; Neutrophils # 9.7 K/mcL (1.6-8.9); Platelet Count 261 K/mcL (140-400); Red Cell Distribution Width 12.9 % (11.5-14.5); Segmented Neutrophils % 55.1 %; White Blood Count 17.6 K/mcL (4.3-11.1)
[2019-10-02 01:56] LABS: Alanine Aminotransferase 8 Units/L (7-52); Albumin 3.7 g/dL (3.5-5.7); Albumin/Globulin Ratio 1.5 (1.1-2.2); Alkaline Phosphatase 48 Units/L (34-104); Aspartate Amino Transferase 11 Units/L (13-39); BUN/Creatinine Ratio 25 (6-26); Bilirubin,Total 0.5 mg/dL (0.3-1.0); Blood Urea Nitrogen 26 mg/dL (8-23); Calcium 8.5 mg/dL (8.6-10.3); Carbon Dioxide 20 mEq/L (23-29); Chloride 107 mEq/L (98-107); Globulin 2.5 g/dL (2.4-3.5); Glucose 130 mg/dL (70-105); Osmolality,Calculated 289 (280-300); Phosphorous 2.7 mg/dL (2.7-4.5); Potassium 4.1 mEq/L (3.5-5.1); Sodium 136 mEq/L (136-145); Total Protein 6.2 g/dL (6.4-8.9); eGFR For African Americans > 60 (> 60); eGFR For Non-African Americans > 60 (> 60)
[2019-10-02] MEDS ORDERED: 0.9 % Sodium Chloride 1,000 ML IVC ONE (01:56)
[2019-10-02] MEDS ORDERED: Cefepime HCl 2,000 MG in 0.9 % Sodium Chloride Mini Bag 100 ML IVPB SCH (02:00)
[2019-10-02 02:09] LABS: Platelet Estimate Normal (Normal); Reactive Lymphocytes Present (Not Present)
[2019-10-02] MEDS ORDERED: Vancomycin 1,500 MG/265 ML IV.SOLN IVPB SCH (03:00)
[2019-10-02 03:53] LABS: INR 1.2; Prothrombin Time 13.4 Seconds (9.4-12.1)
[2019-10-02] MEDS ORDERED: MetroNIDAZOLE 500 MG/100 ML 500 MG/100 ML BAG IVPB SCH (06:00)
[2019-10-02] MEDS: *HR* Heparin 5,000 UNIT/ML VIAL SQ SCH ×2 (06:34→17:40)
[2019-10-02] MEDS: Insulin LISPRO 300 UNITS/3 ML VIAL SQ SCH ×4 (07:44→20:55)
[2019-10-02] MEDS: Gabapentin 300 MG CAPSULE PO SCH ×2 (09:54→20:47)
[2019-10-02] MEDS: Aspirin Enteric Coated 81 MG Tablet PO SCH (09:54)
[2019-10-02] MEDS ORDERED: D5% in Water 1,000 ML IVC PRN (15:43)
[2019-10-02] MEDS ORDERED: Dextrose Gel 15 GM/37.5 ML TUBE PO PRN ×2 (15:43)
[2019-10-02] MEDS ORDERED: Naloxone 0.4 MG/ML INJ IVP PRN (15:43)
[2019-10-02] MEDS ORDERED: Famotidine 20 MG TABLET PO PRN (15:43)
[2019-10-02] MEDS ORDERED: *HR* Dextrose 50 % in Water (Syg) 50 ML SYRINGE IVP PRN (15:43)
[2019-10-02] MEDS: Ampicillin/Sulbactam 3,000 MG in 0.9 % Sodium Chloride Mini Bag 100 ML IVPB SCH ×2 (17:41→23:24)
[2019-10-02] MEDS ORDERED: Ampicillin/Sulbactam 3,000 MG in 0.9 % Sodium Chloride Mini Bag 100 ML IVPB SCH (18:00)
[2019-10-03 02:23] LABS: Basophils # 0.1 K/mcL (0.0-0.2); Basophils % 0.6 %; Eosinophils # 0.2 K/mcL (0.0-0.6); Eosinophils % 1.9 %; Hematocrit 33.8 % (37.5-50.1); Hemoglobin 11.3 g/dL (12.9-16.9); Immature Granulocytes % 0.2 % (0-4); Lymphocytes # 2.4 K/mcL (0.6-4.6); Lymphocytes % 27.9 %; Mean Corpuscular HGB Conc 33.4 g/dL (31.6-35.5); Mean Corpuscular Hemoglobin 31.3 pg (28.0-33.3); Mean Corpuscular Volume 93.6 fL (83.0-100.0); Mean Platelet Volume 10.6 fL (9.4-12.4); Monocytes # 0.7 K/mcL (0.0-1.3); Monocytes % 8.4 %; Platelet Count 214 K/mcL (140-400); Red Blood Count 3.61 M/mcL (4.19-5.50)
[2019-10-03 02:25] LABS: Neutrophils # 5.3 K/mcL (1.6-8.9); White Blood Count 8.6 K/mcL (4.3-11.1)
[2019-10-03 02:37] LABS: BUN/Creatinine Ratio 17 (6-26); Blood Urea Nitrogen 17 mg/dL (8-23); Calcium 8.8 mg/dL (8.6-10.3); Carbon Dioxide 23 mEq/L (23-29); Chloride 107 mEq/L (98-107); Glucose 94 mg/dL (70-105); Osmolality,Calculated 289 (280-300); Potassium 3.8 mEq/L (3.5-5.1); Sodium 139 mEq/L (136-145); eGFR For African Americans > 60 (> 60); eGFR For Non-African Americans > 60 (> 60)
[2019-10-03] MEDS: Ampicillin/Sulbactam 3,000 MG in 0.9 % Sodium Chloride Mini Bag 100 ML IVPB SCH ×3 (05:43→17:35)
[2019-10-03] MEDS: *HR* Heparin 5,000 UNIT/ML VIAL SQ SCH ×2 (05:44→17:35)
[2019-10-03] MEDS: Insulin LISPRO 300 UNITS/3 ML VIAL SQ SCH ×4 (08:00→21:25)
[2019-10-03] MEDS: Gabapentin 300 MG CAPSULE PO SCH ×2 (08:02→21:24)
[2019-10-03] MEDS: Aspirin Enteric Coated 81 MG Tablet PO SCH (08:02)
[2019-10-03] MEDS ORDERED: Aminoglycoside Consult 1 EACH MC ONE (12:20)
[2019-10-04] MEDS: Ampicillin/Sulbactam 3,000 MG in 0.9 % Sodium Chloride Mini Bag 100 ML IVPB SCH ×2 (00:01→05:16)
[2019-10-04] MEDS: *HR* Heparin 5,000 UNIT/ML VIAL SQ SCH ×2 (05:16→17:02)
[2019-10-04] MEDS: Aspirin Enteric Coated 81 MG Tablet PO SCH (07:59)
[2019-10-04] MEDS: Insulin LISPRO 300 UNITS/3 ML VIAL SQ SCH ×4 (07:59→20:31)
[2019-10-04] MEDS: Gabapentin 300 MG CAPSULE PO SCH ×2 (08:00→20:30)
[2019-10-04 09:57] LABS: Hematocrit 35.7 % (37.5-50.1); Hemoglobin 11.9 g/dL (12.9-16.9); Mean Corpuscular HGB Conc 33.3 g/dL (31.6-35.5); Mean Corpuscular Hemoglobin 30.8 pg (28.0-33.3); Mean Corpuscular Volume 92.5 fL (83.0-100.0); Mean Platelet Volume 10.3 fL (9.4-12.4); Platelet Count 231 K/mcL (140-400); Red Blood Count 3.86 M/mcL (4.19-5.50); Red Cell Distribution Width 12.8 % (11.5-14.5); White Blood Count 6.8 K/mcL (4.3-11.1)
[2019-10-04 10:13] LABS: BUN/Creatinine Ratio 11 (6-26); Blood Urea Nitrogen 11 mg/dL (8-23); Carbon Dioxide 28 mEq/L (23-29); Chloride 104 mEq/L (98-107); Glucose 125 mg/dL (70-105); Osmolality,Calculated 289 (280-300); Potassium 3.9 mEq/L (3.5-5.1); Sodium 139 mEq/L (136-145); eGFR For African Americans > 60 (> 60); eGFR For Non-African Americans > 60 (> 60)
[2019-10-04] MEDS ORDERED: Haloperidol Lactate 5 MG/ML VIAL IM ONE (12:30)
[2019-10-04] MEDS ORDERED: *HR* LORazepam 2 MG/ML VIAL ONE (16:05)
[2019-10-04 16:45] LABS: Basophils # 0.1 K/mcL (0.0-0.2); Basophils % 0.7 %; Eosinophils # 0.1 K/mcL (0.0-0.6); Eosinophils % 0.8 %; Hematocrit 36.7 % (37.5-50.1); Hemoglobin 12.2 g/dL (12.9-16.9); Immature Granulocytes % 0.4 % (0-4); Lymphocytes # 2.9 K/mcL (0.6-4.6); Lymphocytes % 27.9 %; Mean Corpuscular HGB Conc 33.2 g/dL (31.6-35.5); Mean Corpuscular Hemoglobin 30.7 pg (28.0-33.3); Mean Corpuscular Volume 92.2 fL (83.0-100.0); Mean Platelet Volume 10.4 fL (9.4-12.4); Monocytes % 9.4 %; Neutrophils # 6.3 K/mcL (1.6-8.9); Platelet Count 263 K/mcL (140-400); Red Blood Count 3.98 M/mcL (4.19-5.50); Red Cell Distribution Width 12.9 % (11.5-14.5); Segmented Neutrophils % 60.8 %
[2019-10-04 16:46] LABS: White Blood Count 10.3 K/mcL (4.3-11.1)
[2019-10-04 17:06] LABS: BUN/Creatinine Ratio 11 (6-26); Blood Urea Nitrogen 12 mg/dL (8-23); Calcium 9.1 mg/dL (8.6-10.3); Carbon Dioxide 23 mEq/L (23-29); Chloride 105 mEq/L (98-107); Glucose 152 mg/dL (70-105); Osmolality,Calculated 291 (280-300); Potassium 3.5 mEq/L (3.5-5.1); Sodium 139 mEq/L (136-145); eGFR For African Americans > 60 (> 60); eGFR For Non-African Americans > 60 (> 60)
[2019-10-04 17:08] LABS: Troponin I < 0.03 ng/mL (< 0.04)
[2019-10-05] MEDS: *HR* Heparin 5,000 UNIT/ML VIAL SQ SCH ×2 (05:57→17:50)
[2019-10-05 06:11] LABS: Hematocrit 34.8 % (37.5-50.1); Hemoglobin 11.8 g/dL (12.9-16.9); Mean Corpuscular HGB Conc 33.9 g/dL (31.6-35.5); Mean Corpuscular Hemoglobin 31.6 pg (28.0-33.3); Mean Corpuscular Volume 93.3 fL (83.0-100.0); Mean Platelet Volume 10.5 fL (9.4-12.4); Platelet Count 208 K/mcL (140-400); Red Blood Count 3.73 M/mcL (4.19-5.50); Red Cell Distribution Width 12.7 % (11.5-14.5); White Blood Count 7.7 K/mcL (4.3-11.1)
[2019-10-05 06:33] LABS: BUN/Creatinine Ratio 16 (6-26); Blood Urea Nitrogen 16 mg/dL (8-23); Calcium 9.1 mg/dL (8.6-10.3); Carbon Dioxide 26 mEq/L (23-29); Chloride 106 mEq/L (98-107); Glucose 114 mg/dL (70-105); Magnesium 2.1 mg/dL (1.6-2.6); Osmolality,Calculated 292 (280-300); Phosphorous 3.4 mg/dL (2.7-4.5); Potassium 3.8 mEq/L (3.5-5.1); Sodium 140 mEq/L (136-145); eGFR For African Americans > 60 (> 60); eGFR For Non-African Americans > 60 (> 60)
[2019-10-05] MEDS ORDERED: CeFAZolin 2 GM/100 ML BAG IVPB ONE (10:29)
[2019-10-05] MEDS ORDERED: CeFAZolin 2 GM/120 ML BAG IVPB ONE (10:45)
[2019-10-05] MEDS: Insulin LISPRO 300 UNITS/3 ML VIAL SQ SCH ×4 (10:58→22:03)
[2019-10-05] MEDS: Gabapentin 300 MG CAPSULE PO SCH ×2 (10:58→19:29)
[2019-10-05] MEDS: Aspirin Enteric Coated 81 MG Tablet PO SCH (10:58)
[2019-10-05] MEDS ORDERED: 0.9 % Sodium Chloride 500 ML ONE (11:36)
[2019-10-05] MEDS ORDERED: 0.9 % Sodium Chloride 1,000 ML ONE (11:36)
[2019-10-05] MEDS ORDERED: *HR* Midazolam HCl 2 MG/2 ML VIAL ONE (12:00)
[2019-10-05] MEDS ORDERED: *HR* FentaNYL (PF) 100 MCG/2 ML VIAL ONE (12:00)
[2019-10-05] MEDS: CeFAZolin 2 GM/120 ML BAG IVPB SCH (19:31)
[2019-10-05] MEDS ORDERED: *HR* LORazepam 2 MG/ML VIAL IVP ONE (21:55)
[2019-10-06] MEDS ORDERED: *HR* LORazepam 2 MG/ML VIAL IVP ONE (02:00)
[2019-10-06] MEDS: CeFAZolin 2 GM/120 ML BAG IVPB SCH (02:13)
[2019-10-06] MEDS: *HR* Heparin 5,000 UNIT/ML VIAL SQ SCH (05:38)
[2019-10-06 09:07] LABS: Hematocrit 34.6 % (37.5-50.1); Hemoglobin 11.7 g/dL (12.9-16.9); Mean Corpuscular HGB Conc 33.8 g/dL (31.6-35.5); Mean Corpuscular Hemoglobin 30.7 pg (28.0-33.3); Mean Corpuscular Volume 90.8 fL (83.0-100.0); Mean Platelet Volume 10.7 fL (9.4-12.4); Platelet Count 241 K/mcL (140-400); Red Blood Count 3.81 M/mcL (4.19-5.50); Red Cell Distribution Width 12.8 % (11.5-14.5); White Blood Count 8.2 K/mcL (4.3-11.1)
[2019-10-06 11:15] VITALS: BP 158/62
[2019-10-06] MEDS ORDERED: Ondansetron 4 MG/2 ML VIAL IVP ONE (23:37)
== END 2019-10-06 15:04 | disposition home or self-care (01) | DRG 244 ==
LOC: EMEROOARM 18:15 → 3BNU 18:15 → ICNU 10-02 01:14 → 3BNU 10-02 14:47
PROVIDERS: ADMIT Family Medicine; ATTEND Student in an Organized Health Care Education/Training Program

== ENCOUNTER 2020-05-11 13:06 | Inpatient (IN) ==
[2020-05-11 13:52] LABS: Basophils # 0.1 K/mcL (0.0-0.2); Basophils % 0.9 %; Eosinophils # 0.1 K/mcL (0.0-0.6); Hematocrit 34.2 % (37.5-50.1); Hemoglobin 11.1 g/dL (12.9-16.9); Immature Granulocytes % 0.3 % (0-4); Lymphocytes # 1.3 K/mcL (0.6-4.6); Lymphocytes % 21.6 %; Mean Corpuscular HGB Conc 32.5 g/dL (31.6-35.5); Mean Corpuscular Hemoglobin 29.8 pg (28.0-33.3); Mean Corpuscular Volume 91.7 fL (83.0-100.0); Mean Platelet Volume 10.4 fL (9.4-12.4); Monocytes # 0.7 K/mcL (0.0-1.3); Monocytes % 12.2 %; Neutrophils # 3.7 K/mcL (1.6-8.9); Platelet Count 191 K/mcL (140-400); Red Blood Count 3.73 M/mcL (4.19-5.50); Red Cell Distribution Width 13.2 % (11.5-14.5); White Blood Count 5.8 K/mcL (4.3-11.1)
[2020-05-11 14:12] LABS: BUN/Creatinine Ratio 15 (6-26); Blood Urea Nitrogen 15 mg/dL (8-23); Carbon Dioxide 26 mEq/L (23-29); Chloride 106 mEq/L (98-107); Ethanol < 10 mg/dL (Less than 10); Glucose 79 mg/dL (70-105); Osmolality,Calculated 288 (280-300); Sodium 139 mEq/L (136-145); Troponin I < 0.03 ng/mL (< 0.04); eGFR For African Americans > 60 (> 60); eGFR For Non-African Americans > 60 (> 60)
[2020-05-11 14:25] LABS: Thyroid Stimulating Hormone 1.482 mcIU/mL (0.340-5.600)
[2020-05-11 15:02] LABS: Bilirubin,Urine Negative (Negative); Blood,Urine Negative (Negative); Clarity,Urine Clear (Clear); Color,Urine Light-Yellow (Yellow); Glucose,Urine (UA) Normal (Normal); Ketones,Urine Negative (Negative); Leukocyte Esterase,Urine Negative (Negative); Nitrite,Urine Negative (Negative); Protein,Urine Negative (Neg-Trace); Specific Gravity,Urine 1.019 (1.010-1.025); Urobilinogen,Urine Normal (Normal)
[2020-05-11 15:12] LABS: Amphetamine Screen,Urine Negative ng/mL (Cutoff=1000); Barbiturate Screen,Urine Negative ng/mL (Cutoff=200); Benzodiazepines Screen,Urine Negative ng/mL (Cutoff=200); Cannabinoid Screen,Urine Negative ng/mL (Cutoff = 50); Cocaine Screen,Urine Negative ng/mL (Cutoff= 300); Opiate Screen,Urine Negative ng/mL (Cutoff=300); Phencyclidine Screen,Urine Negative ng/mL (Cutoff=25)
[2020-05-11] MEDS ORDERED: Naloxone 0.4 MG/ML INJ IVP PRN (16:08)
[2020-05-11] MEDS ORDERED: Ondansetron 4 MG/2 ML VIAL IVP PRN (16:08)
[2020-05-11] MEDS: QUEtiapine Fumarate 25 MG TABLET PO SCH (19:38)
[2020-05-11] MEDS: Haloperidol Lactate 5 MG/ML VIAL IVP PRN (22:27)
[2020-05-12] MEDS: Haloperidol Lactate 5 MG/ML VIAL IVP PRN ×3 (04:06→22:01)
[2020-05-12] MEDS: Aspirin Enteric Coated 81 MG Tablet PO SCH (08:35)
[2020-05-12] MEDS: Cyanocobalamin (B-12) 1,000 MCG/ML VIAL SQ SCH (17:44)
[2020-05-12] MEDS: QUEtiapine Fumarate 25 MG TABLET PO SCH (19:34)
[2020-05-13] MEDS: Haloperidol Lactate 5 MG/ML VIAL IVP PRN (04:50)
[2020-05-13 06:14] LABS: Basophils # 0.1 K/mcL (0.0-0.2); Basophils % 0.7 %; Eosinophils # 0.1 K/mcL (0.0-0.6); Eosinophils % 1.6 %; Hematocrit 39.8 % (37.5-50.1); Hemoglobin 13.4 g/dL (12.9-16.9); Immature Granulocytes % 0.3 % (0-4); Lymphocytes # 1.7 K/mcL (0.6-4.6); Lymphocytes % 20.1 %; Mean Corpuscular HGB Conc 33.7 g/dL (31.6-35.5); Mean Corpuscular Hemoglobin 30.6 pg (28.0-33.3); Mean Corpuscular Volume 90.9 fL (83.0-100.0); Mean Platelet Volume 10.5 fL (9.4-12.4); Monocytes # 0.8 K/mcL (0.0-1.3); Monocytes % 9.5 %; Neutrophils # 5.9 K/mcL (1.6-8.9); Platelet Count 226 K/mcL (140-400); Red Blood Count 4.38 M/mcL (4.19-5.50); Red Cell Distribution Width 12.9 % (11.5-14.5); Segmented Neutrophils % 67.8 %; White Blood Count 8.7 K/mcL (4.3-11.1)
[2020-05-13 06:23] LABS: BUN/Creatinine Ratio 11 (6-26); Blood Urea Nitrogen 9 mg/dL (8-23); Calcium 9.1 mg/dL (8.6-10.3); Carbon Dioxide 25 mEq/L (23-29); Chloride 105 mEq/L (98-107); Glucose 123 mg/dL (70-105); Osmolality,Calculated 286 (280-300); Potassium 3.6 mEq/L (3.5-5.1); Sodium 138 mEq/L (136-145); eGFR For African Americans > 60 (> 60); eGFR For Non-African Americans > 60 (> 60)
[2020-05-13] MEDS: Cyanocobalamin (B-12) 1,000 MCG/ML VIAL SQ SCH (08:43)
[2020-05-13] MEDS: Aspirin Enteric Coated 81 MG Tablet PO SCH (08:43)
[2020-05-13] MEDS: QUEtiapine Fumarate 25 MG TABLET PO SCH (21:46)
[2020-05-14] MEDS ORDERED: 0.9 % Sodium Chloride 500 ML IVC PRN (08:05)
[2020-05-14] MEDS ORDERED: 0.9 % Sodium Chloride 500 ML ONE (08:19)
[2020-05-14] MEDS: Cyanocobalamin (B-12) 1,000 MCG/ML VIAL SQ SCH (08:32)
[2020-05-14] MEDS: Aspirin Enteric Coated 81 MG Tablet PO SCH (08:32)
[2020-05-14] MEDS: QUEtiapine Fumarate 25 MG TABLET PO SCH (21:24)
[2020-05-15 01:12] LABS: Hematocrit 41.2 % (37.5-50.1); Hemoglobin 13.5 g/dL (12.9-16.9); Mean Corpuscular HGB Conc 32.8 g/dL (31.6-35.5); Mean Corpuscular Hemoglobin 29.8 pg (28.0-33.3); Mean Corpuscular Volume 90.9 fL (83.0-100.0); Mean Platelet Volume 10.5 fL (9.4-12.4); Platelet Count 241 K/mcL (140-400); Red Blood Count 4.53 M/mcL (4.19-5.50); Red Cell Distribution Width 13.2 % (11.5-14.5); White Blood Count 10.1 K/mcL (4.3-11.1)
[2020-05-15 01:33] LABS: BUN/Creatinine Ratio 16 (6-26); Blood Urea Nitrogen 15 mg/dL (8-23); Calcium 9.3 mg/dL (8.6-10.3); Carbon Dioxide 22 mEq/L (23-29); Chloride 107 mEq/L (98-107); Glucose 152 mg/dL (70-105); Osmolality,Calculated 292 (280-300); Sodium 139 mEq/L (136-145); eGFR For African Americans > 60 (> 60); eGFR For Non-African Americans > 60 (> 60)
[2020-05-15 07:04] VITALS: BP 126/73
[2020-05-15] MEDS: Cyanocobalamin (B-12) 1,000 MCG/ML VIAL SQ SCH (08:09)
[2020-05-15] MEDS: Aspirin Enteric Coated 81 MG Tablet PO SCH (08:09)
== END 2020-05-15 12:10 | disposition home health service (06) | DRG 57 ==
LOC: EMEROOARM 13:06 → 3BNU 13:06 → SUATTDRO 16:01 → 3BNU 16:50 → SUATTDRO 05-13 15:46
PROVIDERS: ADMIT Internal Medicine; ATTEND Internal Medicine